=== PATIENT | male | born 2000 | race Caucasian/White ===

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

== ENCOUNTER 2023-07-18 19:24 | Emergency (ER) | payer OTHER ==
[~2023-07-18] VITALS: Ht 175.3 cm; Wt 82.0 kg
[2023-07-18 19:24] VITALS: BP 128/73; TEMP 98.1; O2SAT 95
[~2023-07-18 19:24] MED LIST changes: +DOXY-443 PO
[2023-07-18] MEDS ORDERED: FLUORESCEIN OPHTH 1MG STRIP OS ONE (22:35)
[2023-07-18] MEDS ORDERED: TETRACAINE 0.5% OPHTH SOLN 4ML OS ONE (22:35)
[2023-07-18] MEDS ORDERED: ERYT5OIN25 OS (22:55)
[2023-07-18] MEDS ORDERED: ERYTHROMYCIN OPHTH OINT OS ONE (22:55)
== END 2023-07-18 23:09 | disposition home or self-care (01) ==
LOC: M ED 19:24
DX: S05.02XA Injury of conjunctiva and corneal abrasion without foreign body, left eye, initial encounter (principal); Y92.9 Unspecified place or not applicable; Y93.89 Activity, other specified; Y99.1 Military activity; Z79.2 Long term (current) use of antibiotics; Z79.899 Other long term (current) drug therapy